=== PATIENT | female | born 1960 | race Caucasian/White ===

== ENCOUNTER 2020-01-20 14:00 | Outpatient (RCR) | payer BC, SELFPAY ==
[2019-11-04 13:58] VITALS: BMI 40.4
[2020-01-20 14:03] VITALS: BMI 41.3
[2020-01-20 14:06] VITALS: BMI 41.3
== END 2020-02-02 23:59 | disposition home or self-care (01) ==
LOC: ANHDMC 14:00
PROVIDERS: PCP Family Medicine; Visit Provider Family Medicine
DX: R63.5 Abnormal weight gain (principal); Z71.3 Dietary counseling and surveillance
CPT/HCPCS: 97802; 97803

== ENCOUNTER → 2021-06-06 11:33 | Outpatient (CLI) | payer BC, SELFPAY ==
--- NOTE | ~2021-06-06 | MM_ITS ---
EXAMINATION: MM screening tami BI w nasir HISTORY: Screening TECHNIQUE: Craniocaudal and mediolateral oblique 3-D tomosynthesis images were obtained and synthetic 2-D images were generated. CAD analysis was submitted and interpreted. COMPARISON: 08/22/2018 BREAST PARENCHYMAL COMPOSITION: There are scattered areas of fibroglandular density. FINDINGS: There is no evidence of suspicious mass, calcification, or architectural distortion to sugg est malignancy in either breast. There has been no suspicious interval change. IMPRESSION: 1. No mammographic evidence of malignancy. 2. Recommend routine screening mammography in one year. BI-RADS Category 1: Negative Reviewed, dictated and finalized at location A. E PRESSER
== END ==
PROVIDERS: PCP Family Medicine; Visit Provider Family Medicine
DX: Z12.31 Encounter for screening mammogram for malignant neoplasm of breast (principal)
CPT/HCPCS: 77063; 77067

== ENCOUNTER 2022-05-16 00:24 | Day surgery (SDC) | payer BC, SELFPAY ==
[2022-05-03 09:12] VITALS: BMI 40.7
--- NOTE | 2022-05-16 07:02 | WPDANESEPPF ---
Anes - Initial Pre Proc Eval Procedure: Operation Date: 05/16/22 09:45 Proposed Procedures p Screening Colonoscopy - Edenilson Mandujano MD Date/Time: 05/16/22 07:02 Surgeon: Edenilson Mandujano MD Pre Op Diagnosis: neoplasm screening Patient Data Age: 61 Gender: F Height: 1.7 m Weight: 118 kg Allergies Allergy/AdvReac Type Severity Reaction Status Date / Time nitrofurantoin Allergy Intermediate chest Verified 05/16/22 08:33 pains pioglitazone AdvReac Intermediate edema Verified 05/16/22 08:33 [id number]-[id number] Reductase AdvReac Mild arthralgia Verified 05/16/22 08:33 Inhibitor metformin AdvReac Unknown Diarrhea Verified 05/16/22 08:33 Home Medications Medication Instructions Recorded Confirmed Type blood sugar diagnostic (FreeStyle #10 ea 04/28/19 04/25/22 History Test strips) blood-glucose meter (Contour Next #1 ea 01/28/20 04/25/22 Rx EZ Meter kit) blood sugar diagnostic (Contour #100 ea 05/09/21 04/25/22 Rx Next Test Strips) lancets (Microlet Lancet) #200 ea 07/13/21 04/25/22 Rx lancets (Microlet Lancet) See Rx Instructions .Route 11/09/21 04/25/22 Rx .COMPLEX #100 ea irbesartan 75 mg tablet See Rx Instructions .Route 11/10/21 05/03/22 Rx .COMPLEX #90 tabs ropinirole 0.5 mg tablet 0.5 mg PO QHS #30 tabs 11/25/21 05/03/22 Rx sitagliptin phosphate 100 mg 100 mg PO DAILY #30 tabs 01/23/22 05/03/22 Rx tablet (Januvia) sodium,potassium,mag sulfates 17.5 See Rx Instructions PO .COMPLEX 04/27/22 Rx gram-3.13 gram-1.6 gram oral soln #354 mL (Suprep Bowel Prep Kit) semaglutide 3 mg tablet (Rybelsus) 3 mg PO DAILY 30 days #30 tabs 04/28/22 05/03/22 Rx metformin 500 mg tablet,extended 500 mg PO DAILY #90 tabs 05/01/22 05/03/22 Rx release 24 hr aspirin 81 mg tablet,delayed 81 mg PO DAILY 05/03/22 05/03/22 History release clotrimazole 2 % vaginal cream 1 appful topical BID PRN Vaginal 05/03/22 05/03/22 History Irritation gabapentin 300 mg capsule 300 mg PO DAILY 05/03/22 05/03/22 History Patient hx anesthesia problems: none Family hx anesthesia problems: none Results Review: All pre-operative results and documents have been reviewed as part of the pre-operative evaluation. [facility] Past Medical History Medical History (Updated 05/16/22 @ 07:05 by Shreyas Bearden DO) Depression Diabetes type 2, controlled Essential (primary) hypertension GERD (gastroesophageal reflux disease) IBS (irritable bowel syndrome) Mixed hyperlipidemia Obesity AMEYA on CPAP Osteoarthritis PONV (postoperative nausea and vomiting) Surgical History Surgical History (Updated 05/16/22 @ 07:05 by Shreyas Bearden DO) History of appendectomy History of cholecystectomy History of tubal ligation Family History Family History Mother Depression Family history of chronic obstructive pulmonary disease Father Cerebrovascular accident Family history of heart disease in male family member before age 55 Social History Social History Smoking packs per day: 2 Smoking cigarettes per day: 40.0 Years smoked: 5 Smoking pack-years: 10.00 Smoking status: Former smoker Tobacco type: cigarettes Second hand tobacco smoke exposure: No Smoking end date: 04/23/82 Alcohol intake: never Substance use: never Substance use type: does not use Living arrangements: with family Occupation/Education: occupation Gender identity (if verbalized by the patient): Female Spiritual care concerns: No Anes - Eval Final PreProcedure Day of Procedure 05/16/22 07:02 Patient weight: morbidly obese Heart: regular rate and rhythm Lungs: clear to auscultation Airway: Mallampati scale class II Neurological: alert and oriented Last oral intake: >/= 8 hours ASA classification: III Emergent: no Anesthetic plan: proceed Anesthesia type and monitoring: general GIVS a
[2022-05-16 08:34] VITALS: BP 150/69; PULSE 74; RESP 16; TEMP 36.4; O2SAT 100
[2022-05-16] MEDS: LACTATED RINGERS 1,000 ML 150 ML IV CONT (08:43)
[2022-05-16 08:45] LABS: Glucose Point of Care 215 mg/dl (65-105)
--- NOTE | 2022-05-16 09:05 | PM.HPGS ---
History of Present Illness History of Present Illness Consent: Risks, benefits, and alternatives have been discussed and questions answered. Patient agrees to proceed with procedure. Chief complaint: neoplasm screening Narrative: Edna Holly is a 61 year old female Presents for screening colonoscopy. Patient's current weight appetite and bowel movements are normal. Patient denies abdominal pain. She has had no bleeding. Family history noncontributory. Previous colonoscopy 2016 revealed a benign mucosal polyp not felt to have cancer risk. Patient presents today on referral from primary care service for neoplasia screening colonoscopy. Review of Systems Review of Systems: Review of systems noncontributory. [facility] Past Medical History Medical History (Updated 05/16/22 @ 09:06 by Edenilson Mandujano MD) Depression Diabetes type 2, controlled Essential (primary) hypertension GERD (gastroesophageal reflux disease) IBS (irritable bowel syndrome) Mixed hyperlipidemia Obesity AMEYA on CPAP Osteoarthritis PONV (postoperative nausea and vomiting) Surgical History Surgical History (Updated 05/16/22 @ 07:05 by Shreyas Bearden DO) History of appendectomy History of cholecystectomy History of tubal ligation Family History Family History Mother Depression Family history of chronic obstructive pulmonary disease Father Cerebrovascular accident Family history of heart disease in male family member before age 55 Social History Social History Smoking packs per day: 2 Smoking cigarettes per day: 40.0 Years smoked: 5 Smoking pack-years: 10.00 Smoking status: Former smoker Tobacco type: cigarettes Second hand tobacco smoke exposure: No Smoking end date: 04/23/82 Alcohol intake: never Substance use: never Substance use type: does not use Living arrangements: with family Occupation/Education: occupation Gender identity (if verbalized by the patient): Female Spiritual care concerns: No Meds Home Medications and Allergies Home Medications Medication Instructions Recorded Confirmed Type blood sugar diagnostic (FreeStyle #10 ea 04/28/19 05/16/22 History Test strips) blood-glucose meter (Contour Next #1 ea 01/28/20 05/16/22 Rx EZ Meter kit) blood sugar diagnostic (Contour #100 ea 05/09/21 05/16/22 Rx Next Test Strips) lancets (Microlet Lancet) #200 ea 07/13/21 05/16/22 Rx lancets (Microlet Lancet) See Rx Instructions .Route 11/09/21 05/16/22 Rx .COMPLEX #100 ea irbesartan 75 mg tablet See Rx Instructions .Route 11/10/21 05/16/22 Rx .COMPLEX #90 tabs ropinirole 0.5 mg tablet 0.5 mg PO QHS #30 tabs 11/25/21 05/16/22 Rx sitagliptin phosphate 100 mg 100 mg PO DAILY #30 tabs 01/23/22 05/16/22 Rx tablet (Januvia) semaglutide 3 mg tablet (Rybelsus) 3 mg PO DAILY 30 days #30 tabs 04/28/22 05/16/22 Rx aspirin 81 mg tablet,delayed 81 mg PO DAILY 05/03/22 05/16/22 History release clotrimazole 2 % vaginal cream 1 appful topical BID PRN Vaginal 05/03/22 05/16/22 History Irritation gabapentin 300 mg capsule 300 mg PO DAILY 05/03/22 05/16/22 History Allergies Allergy/AdvReac Type Severity Reaction Status Date / Time nitrofurantoin Allergy Intermediate chest Verified 05/16/22 08:33 pains pioglitazone AdvReac Intermediate edema Verified 05/16/22 08:33 Fzqzzpp-[id number]-GxY Reductase AdvReac Mild arthralgia Verified 05/16/22 08:33 Inhibitor metformin AdvReac Unknown Diarrhea Verified 05/16/22 08:33 Vital Signs Vital Signs - 24 hr 05/16/22 08:34 Temperature 97.6 F Pulse Rate 74 Respiratory Rate 16 Blood Pressure 150/69 H Pulse Oximetry 100 Oxygen Delivery Room Air Exam Narrative: Physical exam reveals patient to be alert. Vital signs stable. HEENT exam is unremarkable. Patient is anicteric. Lungs are clear to auscultation and per
[2022-05-16 10:20] VITALS: BP 105/58; PULSE 65; RESP 24; O2SAT 99
[2022-05-16 10:30] VITALS: BP 117/63; PULSE 64; RESP 22; O2SAT 99
[2022-05-16 10:40] VITALS: BP 131/77; PULSE 63; RESP 12; O2SAT 99
== END 2022-05-16 10:49 | disposition home or self-care (01) ==
PROVIDERS: PCP Family Medicine; Visit Provider Internal Medicine Gastroenterology
PROC: 0DJD8ZZ Inspection of Lower Intestinal Tract, Via Natural or Artificial Opening Endoscopic (ICD-10-PCS; CPT 45378; principal; 2022-05-16 09:45)
DX: Z12.11 Encounter for screening for malignant neoplasm of colon (principal); K64.8 Other hemorrhoids; K57.30 Diverticulosis of large intestine without perforation or abscess without bleeding; Z79.84 Long term (current) use of oral hypoglycemic drugs; I10 Essential (primary) hypertension; E11.9 Type 2 diabetes mellitus without complications; E78.2 Mixed hyperlipidemia; G47.33 Obstructive sleep apnea (adult) (pediatric); K21.9 Gastro-esophageal reflux disease without esophagitis; K58.9 Irritable bowel syndrome, unspecified; Z87.891 Personal history of nicotine dependence; E66.01 Morbid (severe) obesity due to excess calories; Z68.39 Body mass index [BMI] 39.0-39.9, adult
CPT/HCPCS: 45378; 82948; J2704; J7120

== ENCOUNTER 2023-03-10 12:55 | Emergency (ER) | payer BC, SELFPAY ==
--- NOTE | ~2023-03-10 | CT_ITS ---
EXAMINATION: CT soft tissue neck w con DATE: 03/10/2023 16:50 INDICATION: TECHNIQUE: Computed tomography (CT) of the neck was performed with 75 mL Omnipaque-350 intravenous co ntrast. Automated exposure control and iterative reconstruction technique were employed. The dose-abbie gth product was 535.82 mGy-cm. COMPARISON: None FINDINGS: The thyroid gland is unremarkable. The submandibular and parotid glands are symmetric. There is n o cervical lymphadenopathy. There are no masses identified. The superior mediastinum is unremarka ble. The airway is unremarkable. Parapharyngeal and pre-glottic fat planes are preserved. The o rbits are unremarkable. Moderate left mastoid fluid, the remaining aerated spaces are clear. Mike scent change in the lungs. There is cervical spondylosis. IMPRESSION: Unremarkable CT soft tissue neck findings. No foreign body. Reviewed, dictated and finalized at location K. [employer]
[2023-03-10 12:58] VITALS: BP 168/94; PULSE 67; RESP 18; TEMP 36.1; O2SAT 99
--- NOTE | 2023-03-10 16:12 | ED.GENADULT ---
HPI - General Adult General Chief complaint: Unspecified Stated complaint: Swallowed Needle Time Seen by Provider: 03/10/23 15:05 History of Present Illness HPI narrative: Edna Holly is a 62 y/o female who presents today with reports of feeling like there is something stuck in her throat. She states that she was eating a chicken thigh last night at around [id number] and she states she bit in to something hard and when she tried to get it out of her mouth she accidentally swallowed it and felt it get lodged in her lower throat left side. She states she then inspected the bone to see if it was in tact and it was so she was concerned that it might be a piece of metal or some other foreign object that was in the chicken. She went to bed and when she got up today and continued to feel the foreign object she came here . Denies SOB / Denies difficulty swallowing, she states she has eaten since this happened but has minor pain with swallowing. Related Data Home Medications Medication Instructions Recorded Confirmed blood sugar diagnostic ([employer] #10 ea 04/28/19 02/07/23 Test strips) aspirin 81 mg tablet,delayed 81 mg PO DAILY 05/03/22 02/07/23 release gabapentin 300 mg capsule 300 mg PO DAILY 05/03/22 02/07/23 Allergies Allergy/AdvReac Type Severity Reaction Status Date / Time nitrofurantoin Allergy Intermediate chest Verified 03/10/23 15:03 pains pioglitazone AdvReac Intermediate edema Verified 03/10/23 15:03 [id number]-ERM-UiM Reductase AdvReac Mild arthralgia Verified 03/10/23 15:03 Inhibitor metformin AdvReac Unknown Diarrhea Verified 03/10/23 15:03 Review of Systems Review of Systems: CONSTITUTIONAL: Denies fever, chills, or sweats. EYES: Denies visual changes, redness, or discharge. ENT: Denies rhinorrhea, congestion, sore throat, or otalgia. reports feeling a foreign object to her left lower throat since yesterday minor pain with swallowing. CARDIOVASCULAR: Denies chest pain, palpitations, or edema. RESPIRATORY: Denies cough or dyspnea. GASTROINTESTINAL: Denies abdominal pain, nausea, vomiting, or diarrhea. GENITOURINARY: Denies dysuria or hematuria. SKIN: Denies rash or itching. MUSCULOSKELETAL: Denies back pain, joint pain, or myalgia. NEUROLOGIC: Denies headache, numbness, dizziness, or weakness. PSYCHIATRIC: Denies anxiety or depression. [facility] Past Medical History Medical History Depression Diabetes type 2, controlled Essential (primary) hypertension GERD (gastroesophageal reflux disease) IBS (irritable bowel syndrome) Mixed hyperlipidemia Obesity AMEYA on CPAP Osteoarthritis PONV (postoperative nausea and vomiting) Statin intolerance Surgical History Surgical History History of appendectomy History of cholecystectomy History of tubal ligation Family History Family History Mother Depression Family history of chronic obstructive pulmonary disease Father Cerebrovascular accident Family history of heart disease in male family member before age 55 Social History Social History Smoking packs per day: 2 Smoking cigarettes per day: 40.0 Years smoked: 5 Smoking pack-years: 10.00 Smoking status: Former smoker Tobacco type: cigarettes Second hand tobacco smoke exposure: No Smoking end date: 04/23/82 Alcohol intake: never Substance use: never Substance use type: does not use Living arrangements: with family Occupation/Education: occupation Gender identity (if verbalized by the patient): Female Spiritual care concerns: No Exam Narrative: GENERAL: Well-appearing, well-nourished, and in no acute distress. HEAD: Normocephalic, atraumatic. EYES: PERRLA and EOMI. ENT: Nares clear, no rhinorrhea or epistaxis. Mucous membranes moist. Oropharynx
[2023-03-10 16:18] LABS: Basophils Absolute Auto 0.1 K/mm3 (0.0-0.1); Basophils Percent Auto 0.6 % (0.2-1.2); Eosinophils Absolute Auto 0.1 K/mm3 (0-0.3); Eosinophils Percent Auto 0.8 % (0-4.4); Hematocrit 39.6 % (37.0-47.0); Hemoglobin 13.2 g/dL (12.0-15.0); Immature Granulocyte Absolute 0.02 K/mm3 (0.00-0.031); Immature Granulocyte Percent A 0.2 % (0-0.5); Lymphocytes Absolute Auto 2.44 K/mm3 (0.9-3.2); Lymphocytes Percent Auto 28.4 % (18.3-44.2); Mean Corpuscular HGB Conc 33.3 g/dl (32-36); Mean Corpuscular Hemoglobin 31.2 pg (26-34); Mean Corpuscular Volume 93.6 fl (80-100); Mean Platelet Volume 9.6 fl (7.4-10.4); Monocytes Absolute Auto 0.8 K/mm3 (0.1-0.6); Monocytes Percent Auto 9.4 % (2.6-8.5); Neutrophils Absolute Auto 5.2 K/mm3 (1.3-6.7); Neutrophils Percent Auto 60.6 % (45.5-73.1); Platelet Count Result 343 k/mm3 (150-375); Red Blood Count 4.23 M/mm3 (4.2-5.4); White Blood Count 8.6 K/mm3 (4.5-10.0)
[2023-03-10 16:29] LABS: Anion Gap 9 mmol/L (8-16); Blood Urea Nitrogen 14 mg/dL (7-17); Calcium 10.2 mg/dL (8.4-10.2); Carbon Dioxide 28 mmol/L (22-30); Chloride 104 mmol/L (98-107); Estimated CRCL calculation 89 ml/min; Estimated Glomerular Filt Rate > 60; Glucose 117 mg/dL (65-110); Potassium 4.1 mmol/L (3.4-5.0); Sodium 141 mmol/L (137-145)
== END 2023-03-10 17:50 | disposition home or self-care (01) ==
PROVIDERS: Emergency Provider Nurse Practitioner Family; PCP Family Medicine
DX: R07.0 Pain in throat (principal); I10 Essential (primary) hypertension; E11.9 Type 2 diabetes mellitus without complications; E78.2 Mixed hyperlipidemia; E66.9 Obesity, unspecified; Z68.35 Body mass index [BMI] 35.0-35.9, adult; K21.9 Gastro-esophageal reflux disease without esophagitis; K58.9 Irritable bowel syndrome, unspecified; G47.33 Obstructive sleep apnea (adult) (pediatric); M19.90 Unspecified osteoarthritis, unspecified site; Z87.891 Personal history of nicotine dependence; Z90.49 Acquired absence of other specified parts of digestive tract; Z79.84 Long term (current) use of oral hypoglycemic drugs; Z79.82 Long term (current) use of aspirin
CPT/HCPCS: 36415; 70491; 80048; 85025; 99284; Q9967

== ENCOUNTER 2024-01-14 14:25 | Outpatient (CLI) | payer BC, SELFPAY ==
--- NOTE | ~2024-01-14 | XR_ITS ---
XR chest 2V Ordering provider: Zenobia Brink PA-C History: 63 years Female with . R07.9 - Chest pain, unspecified . Comparison: 12/13/2017 FINDINGS: MEDIASTINUM: The cardiac silhouette is not enlarged. LUNGS: No infiltrates, effusions or pneumothorax. OTHER: No free air under the diaphragm. Degenerative changes of the spine. IMPRESSION: No acute cardiopulmonary pathology. Reviewed, dictated and finalized at location A.
== END 2024-01-14 14:26 | disposition home or self-care (01) ==
LOC: MICIMG 14:27
PROVIDERS: PCP Family Medicine; Visit Provider Physician Assistant Medical
DX: R07.9 Chest pain, unspecified (principal)
CPT/HCPCS: 71046

== ENCOUNTER 2024-01-28 15:38 | Outpatient (CLI) | payer BC, SELFPAY ==
--- NOTE | ~2024-01-28 | XR_ITS ---
3 VIEWS THORACIC SPINE Ordering provider: Johan Sierra MD History: . M54.6 - Pain in thoracic spine . Comparison: None. FINDINGS: VERTEBRAL BODIES: Normal height and alignment. No visible fracture or subluxation. Degenerative waters es of the spine. DISK SPACES: Narrowing of the disc space at multiple levels. SOFT TISSUES: Normal. IMPRESSION: No acute osseous abnormality of the thoracic spine. Degenerative changes of the spine with multilevel degenerative disc Reviewed, dictated and finalized at location A.
== END 2024-01-28 15:39 | disposition home or self-care (01) ==
LOC: MICIMG 15:39
PROVIDERS: PCP Family Medicine; Visit Provider Family Medicine
DX: M47.814 Spondylosis without myelopathy or radiculopathy, thoracic region (principal); M54.6 Pain in thoracic spine
CPT/HCPCS: 72072